=== PATIENT | male | born 1980 | race Caucasian/White ===

== ENCOUNTER 2021-10-05 18:19 | Emergency (ER) | payer SELFPAY ==
[2021-10-05 18:37] VITALS: BP 99/58
[2021-10-05] MEDS ORDERED: traMADol 50 MG TAB PO ONE (21:53)
[2021-10-05] MEDS ORDERED: cephALEXin 500 MG CAP PO ONE (21:53)
[2021-10-05] MEDS ORDERED: LIDOCAINE 1%/EPINEPHRINE 1:100,000 VIAL (20 ML) INFILTRATI ONE (21:53)
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
[2021-10-05] MEDS ORDERED: LIDOCAINE-MPF (1%) 10 MG/1 ML VIAL 5 ML INFILTRATI ONE (22:27)
== END 2021-10-06 00:02 | disposition home or self-care (01) ==
LOC: ED 18:19
DX: S01.112A Laceration without foreign body of left eyelid and periocular area, initial encounter (principal); Z79.899 Other long term (current) drug therapy; Y04.8XXA Assault by other bodily force, initial encounter; Y93.89 Activity, other specified; Y92.89 Other specified places as the place of occurrence of the external cause; Y99.8 Other external cause status
CPT/HCPCS: 12013; 99282; J3490